=== PATIENT | female | born 1965 | race Caucasian/White ===

== ENCOUNTER 2017-08-20 03:20 | Inpatient (IN) | payer OTHER ==
[~2017-08-20] VITALS: Ht 142.2 cm; Wt 68.0 kg
[2017-08-20] MEDS ORDERED: ONDANSETRON HCL 4MG/2ML VIAL IV STA (04:51)
[2017-08-20] MEDS ORDERED: MECLIZINE 25MG TABLET PO ONE (05:00)
[2017-08-20 05:20] LABS: BASOPHILS % 0.7 % (0.0-2.0); EOSINOPHILS % 2.4 % (0.0-5.0); HEMATOCRIT. 44.3 % (36.0-48.0); LYMPHOCYTES % 17.2 % (20.0-50.0); MEAN CORPUSCULAR HEMOGLOBIN 29.9 pg (28.0-32.0); MEAN CORPUSCULAR VOLUME 88.1 fL (81.0-99.0); MEAN PLATELET VOLUME 9.2 fl (7.4-10.4); MONOCYTES % 4.4 % (2.0-8.0); NEUTROPHILS % 75.3 % (40.0-76.0); PLATELET 256 x1000/uL (130-400); RED BLOOD CELL COUNT 5.03 mill/uL (4.2-5.4); RED CELL DISTRIBUTION WIDTH 13.9 % (11.6-14.6)
[2017-08-20 05:26] LABS: CARBON DIOXIDE 24 mEq/L (21-32); CHLORIDE 105 mEq/L (98-107); TROPONIN I 0.12 ng/mL (0.00-0.04)
[2017-08-20] MEDS ORDERED: ASPIRIN 325MG TABLET PO ONE (06:45)
[2017-08-20 08:00] VITALS: BP 204/103
[2017-08-20 08:30] VITALS: BP 204/103
[2017-08-20] MEDS ORDERED: METF500T4 PO (08:32)
[2017-08-20] MEDS ORDERED: GLIP5TAB12 PO (08:32)
[2017-08-20] MEDS ORDERED: LOSA50TA20 PO (08:32)
[2017-08-20] MEDS ORDERED: METO-396 PO (08:32)
[2017-08-20] MEDS ORDERED: NA PHOS,M-B/NA PHOS,DI-BA ENEMA 118ML PR PRN (09:45)
[2017-08-20] MEDS ORDERED: ACETAMINOPHEN 325MG TABLET PO PRN (09:45)
[2017-08-20] MEDS ORDERED: IPRATROPIUM/ALBUTEROL 0.5-3(2.5)MG/3ML NEB INH PRN (09:45)
[2017-08-20] MEDS ORDERED: KETOROLAC 15MG/ML VIAL IV PRN (09:45)
[2017-08-20] MEDS ORDERED: DIPHENHYDRAMINE 50MG/ML VIAL IV PRN (09:45)
[2017-08-20] MEDS ORDERED: GUAIFENESIN 200MG/10ML SUGAR FREE UDC PO PRN (09:45)
[2017-08-20] MEDS ORDERED: ONDANSETRON HCL 4MG/2ML VIAL IV PRN (09:45)
[2017-08-20] MEDS ORDERED: MAGNESIUM/ALUMINUM HYDROXIDE/SIMETHICONE 30ML UDC PO PRN (09:45)
[2017-08-20] MEDS ORDERED: ZOLPIDEM TARTRATE 5MG TABLET PO PRN (09:45)
[2017-08-20] MEDS ORDERED: LORAZEPAM 0.5MG TABLET PO PRN (09:45)
[2017-08-20] MEDS ORDERED: NITROGLYCERIN 0.4MG TABLET SL SL PRN (09:45)
[2017-08-20] MEDS ORDERED: CLONIDINE 0.1MG TABLET PO PRN (09:45)
[2017-08-20] MEDS ORDERED: DOCUSATE SODIUM 100MG CAPSULE PO PRN (09:45)
[2017-08-20] MEDS: LISINOPRIL 20MG TABLET PO SCH ×2 (10:14→22:00)
[2017-08-20] MEDS: AMLODIPINE 10MG TABLET PO SCH (10:15)
[2017-08-20] MEDS: PANTOPRAZOLE SODIUM 40 MG/VIAL IV SCH (10:15)
[2017-08-20] MEDS: METOPROLOL TARTRATE 25MG TABLET PO SCH ×2 (10:15→21:59)
[2017-08-20] MEDS: ENOXAPARIN 40MG/0.4ML SYR SUBCUT SCH (11:19)
[2017-08-20] MEDS ORDERED: DEXTROSE 50% WATER 50ML SYRINGE IV PRN ×2 (11:45)
[2017-08-20 12:00] VITALS: BP 138/69
[2017-08-20] MEDS: BLOOD SUGAR DIAGNOSTIC STRIP TEST SCH ×3 (12:05→21:00)
[2017-08-20] MEDS: INSULIN LISPRO 100 UNITS/ML SUBCUT SCH ×3 (12:08→22:03)
[2017-08-20] MEDS: HYDRALAZINE HCL 50MG TABLET PO SCH ×2 (13:51→22:01)
[2017-08-20 16:00] VITALS: BP 139/81
[2017-08-20 16:25] LABS: CREATINE KINASE MB FRACTION 1.2 ng/mL (0.5-3.6); TROPONIN I 0.09 ng/mL (0.00-0.04)
[2017-08-20 20:00] VITALS: BP 126/69
[2017-08-20] MEDS ORDERED: ATORVASTATIN CALCIUM 20MG TABLET PO SCH (21:00)
[2017-08-20] MEDS: TRAMADOL 50MG TABLET PO PRN (22:02)
[2017-08-20 22:50] LABS: *AMPHETAMINES SCREEN URINE NEGATIVE (NEGATIVE); *BARBITURATES SCREEN URINE NEGATIVE (NEGATIVE); *BENZODIAZEPINES SCREEN URINE NEGATIVE (NEGATIVE); *COCAINE SCREEN URINE NEGATIVE (NEGATIVE); CANNABINOID URINE SCREEN NEGATIVE (NEGATIVE); METHADONE URINE SCREEN NEGATIVE (NEGATIVE); OPIATES URINE SCREEN NEGATIVE (NEGATIVE); PHENCYCLIDINE URINE SCREEN NEGATIVE (NEGATIVE)
[2017-08-20 23:34] LABS: CREATINE KINASE MB FRACTION 0.8 ng/mL (0.5-3.6); TROPONIN I 0.07 ng/mL (0.00-0.04)
[2017-08-21] VITALS: BP 131/70
[2017-08-21 04:00] VITALS: BP 131/77
[2017-08-21] MEDS: HYDRALAZINE HCL 50MG TABLET PO SCH ×2 (06:30→14:06)
[2017-08-21] MEDS: TRAMADOL 50MG TABLET PO PRN (06:31)
[2017-08-21] MEDS: BLOOD SUGAR DIAGNOSTIC STRIP TEST SCH ×2 (06:33→11:58)
[2017-08-21] MEDS: INSULIN LISPRO 100 UNITS/ML SUBCUT SCH ×2 (06:33→12:12)
[2017-08-21 08:00] VITALS: BP 148/76
[2017-08-21] MEDS: PANTOPRAZOLE SODIUM 40 MG/VIAL IV SCH (08:22)
[2017-08-21] MEDS: LISINOPRIL 20MG TABLET PO SCH (08:22)
[2017-08-21] MEDS: METOPROLOL TARTRATE 25MG TABLET PO SCH (08:22)
[2017-08-21] MEDS: ENOXAPARIN 40MG/0.4ML SYR SUBCUT SCH (08:23)
[2017-08-21] MEDS: AMLODIPINE 10MG TABLET PO SCH (08:23)
[2017-08-21] MEDS ORDERED: ASPIRIN 325MG EC TABLET PO SCH (09:00)
[2017-08-21 13:41] VITALS: BP 128/82
== END 2017-08-21 14:45 | disposition home or self-care (01) | DRG 305 ==
LOC: ER 03:20 → 5WST 05:39 → ENRESERV 07:40
PROVIDERS: ADMIT Internal Medicine; ATTEND Internal Medicine
DX: I10 Essential (primary) hypertension (principal); E11.65 Type 2 diabetes mellitus with hyperglycemia; E66.9 Obesity, unspecified; E78.00 Pure hypercholesterolemia, unspecified; F17.210 Nicotine dependence, cigarettes, uncomplicated; Z79.82 Long term (current) use of aspirin; Z71.3 Dietary counseling and surveillance; Z68.33 Body mass index [BMI] 33.0-33.9, adult
CPT/HCPCS: 36415; 70450; 70551; 71045; 80053; 80061; 80305; 82550; 82553; 82962; 83036; 84484; 85025; 93005; 93306; 93970; 96374; 99291; C9113; J1650; J1815; J2405; J8597

== ENCOUNTER 2018-08-10 12:35 | Inpatient (IN) | payer OTHER ==
[~2018-08-10] VITALS: Ht 139.7 cm; Wt 69.4 kg
[~2018-08-10 12:35] MED LIST: GLIP5TAB12 PO; METF-414 PO; METO-396 PO
[2018-08-10] MEDS ORDERED: ONDANSETRON HCL 4MG/2ML INJ IV STA (13:37)
[2018-08-10] MEDS ORDERED: MORPHINE SULFATE 4 MG/ML CPJ (NOT FOR IM USE) IV STA (13:37)
[2018-08-10] MEDS ORDERED: KETOROLAC 30MG/ML VIAL IV STA (13:37)
[2018-08-10] MEDS ORDERED: LABETALOL HCL 20MG/4ML CARPUJECT IV ONE (13:45)
[2018-08-10] MEDS ORDERED: METHOCARBAMOL 750MG TABLET PO SCH (14:00)
[2018-08-10 14:36] LABS: BASOPHILS % 0.6 % (0.0-2.0); EOSINOPHILS % 2.7 % (0.0-5.0); LYMPHOCYTES % 25.5 % (20.0-50.0); MEAN CORPUSCULAR HEMOGLOBIN 29.8 pg (28.0-32.0); MEAN CORPUSCULAR VOLUME 87.5 fL (81.0-99.0); MEAN PLATELET VOLUME 9.4 fl (7.4-10.4); MONOCYTES % 4.9 % (2.0-8.0); NEUTROPHILS % 66.3 % (40.0-76.0); PLATELET 292 x1000/uL (130-400); RED BLOOD CELL COUNT 5.38 mill/uL (4.2-5.4)
[2018-08-10 14:43] LABS: CHLORIDE 103 mEq/L (98-107)
[2018-08-10] MEDS ORDERED: DEXTROSE 50% WATER 50ML SYRINGE IV PRN ×2 (19:15)
[2018-08-10] MEDS ORDERED: MAGNESIUM/ALUMINUM HYDROXIDE/SIMETHICONE 30ML UDC PO PRN (19:15)
[2018-08-10] MEDS ORDERED: CLONIDINE 0.1MG TABLET PO PRN (19:15)
[2018-08-10] MEDS ORDERED: IPRATROPIUM/ALBUTEROL 0.5-3(2.5)MG/3ML NEB INH PRN (19:15)
[2018-08-10] MEDS ORDERED: DOCUSATE SODIUM 100MG CAPSULE PO PRN (19:15)
[2018-08-10] MEDS ORDERED: CARVEDILOL 3.125 MG TABLET PO NR (20:45)
[2018-08-10 22:30] VITALS: BP 192/91
[2018-08-10 22:54] VITALS: BP 192/91
[2018-08-10] MEDS: CARVEDILOL 3.125 MG TABLET PO SCH (23:05)
[2018-08-11] VITALS (7 sets, daily range): BP systolic 112–175; BP diastolic 54–103
[2018-08-11] MEDS: ACETAMINOPHEN 325MG TABLET PO PRN ×2 (00:44→12:27)
[2018-08-11] MEDS: BLOOD SUGAR DIAGNOSTIC STRIP TEST SCH ×4 (05:46→20:59)
[2018-08-11] MEDS: INSULIN LISPRO 100 UNITS/ML SUBCUT SCH ×4 (06:06→21:00)
[2018-08-11 06:56] LABS: BASOPHILS % 0.5 % (0.0-2.0); EOSINOPHILS % 3.7 % (0.0-5.0); HEMATOCRIT. 43.6 % (36.0-48.0); HEMOGLOBIN. 14.4 g/dL (12.0-16.0); LYMPHOCYTES % 22.3 % (20.0-50.0); MEAN CORPUSCULAR HEMOGLOBIN 29.5 pg (28.0-32.0); MEAN CORPUSCULAR VOLUME 89.6 fL (81.0-99.0); MEAN PLATELET VOLUME 9.2 fl (7.4-10.4); MONOCYTES % 5.7 % (2.0-8.0); NEUTROPHILS % 67.8 % (40.0-76.0); PLATELET 248 x1000/uL (130-400); RED BLOOD CELL COUNT 4.87 mill/uL (4.2-5.4); RED CELL DISTRIBUTION WIDTH 14.1 % (11.6-14.6)
[2018-08-11 07:09] LABS: CHLORIDE 104 mEq/L (98-107)
[2018-08-11 07:24] LABS: PHOSPHORUS 4.2 mg/dL (2.5-4.9)
[2018-08-11] MEDS: CARVEDILOL 3.125 MG TABLET PO SCH (09:37)
[2018-08-11] MEDS: GLIPIZIDE 5MG TABLET PO SCH (13:17)
[2018-08-11] MEDS ORDERED: REGADENOSON 0.4 MG/5 ML IV ONE (13:30)
[2018-08-11] MEDS: NIFEDIPINE XL 60MG TAB PO SCH ×2 (15:35→20:59)
[2018-08-11] MEDS: LOSARTAN POTASSIUM 100 MG TABLET PO SCH (15:35)
[2018-08-11] MEDS: CLONIDINE 0.1MG TABLET PO SCH ×2 (16:04→22:21)
[2018-08-11] MEDS: METFORMIN HCL 500MG TABLET PO SCH (18:13)
[2018-08-11] MEDS: METOPROLOL TARTRATE 25MG TABLET PO SCH (20:59)
[2018-08-12 04:00] VITALS: BP 111/60
[2018-08-12] MEDS: CLONIDINE 0.1MG TABLET PO SCH ×2 (06:00→15:59)
[2018-08-12] MEDS: METFORMIN HCL 500MG TABLET PO SCH (06:18)
[2018-08-12] MEDS: BLOOD SUGAR DIAGNOSTIC STRIP TEST SCH ×2 (06:21→11:50)
[2018-08-12] MEDS: INSULIN LISPRO 100 UNITS/ML SUBCUT SCH ×2 (06:21→12:49)
[2018-08-12 06:51] LABS: CHLORIDE 104 mEq/L (98-107)
[2018-08-12 06:53] LABS: BASOPHILS % 0.5 % (0.0-2.0); EOSINOPHILS % 3.2 % (0.0-5.0); HEMATOCRIT. 45.1 % (36.0-48.0); LYMPHOCYTES % 21.4 % (20.0-50.0); MEAN CORPUSCULAR HEMOGLOBIN 29.6 pg (28.0-32.0); MEAN CORPUSCULAR VOLUME 88.8 fL (81.0-99.0); MEAN PLATELET VOLUME 9.2 fl (7.4-10.4); MONOCYTES % 6.5 % (2.0-8.0); NEUTROPHILS % 68.4 % (40.0-76.0); PLATELET 248 x1000/uL (130-400); RED BLOOD CELL COUNT 5.08 mill/uL (4.2-5.4); RED CELL DISTRIBUTION WIDTH 13.8 % (11.6-14.6)
[2018-08-12 08:00] VITALS: BP 114/65
[2018-08-12] MEDS ORDERED: REGADENOSON 0.4 MG/5 ML IV ONE (09:03)
[2018-08-12] MEDS: LOSARTAN POTASSIUM 100 MG TABLET PO SCH (10:34)
[2018-08-12] MEDS: NIFEDIPINE XL 60MG TAB PO SCH (10:34)
[2018-08-12] MEDS: GLIPIZIDE 5MG TABLET PO SCH (10:34)
[2018-08-12] MEDS: METOPROLOL TARTRATE 25MG TABLET PO SCH (10:34)
[2018-08-12 12:00] VITALS: BP 120/70
[2018-08-12 16:00] VITALS: BP 124/73
[2018-08-12 16:03] VITALS: BP 124/73
[2018-08-12 17:12] LABS: *BARBITURATES SCREEN URINE NEGATIVE (NEGATIVE); *BENZODIAZEPINES SCREEN URINE NEGATIVE (NEGATIVE); *COCAINE SCREEN URINE NEGATIVE (NEGATIVE)
[2018-08-12 17:13] LABS: *AMPHETAMINES SCREEN URINE NEGATIVE (NEGATIVE); CANNABINOID URINE SCREEN NEGATIVE (NEGATIVE); METHADONE URINE SCREEN NEGATIVE (NEGATIVE); OPIATES URINE SCREEN NEGATIVE (NEGATIVE); PHENCYCLIDINE URINE SCREEN NEGATIVE (NEGATIVE)
== END 2018-08-12 16:45 | disposition home or self-care (01) | DRG 305 ==
LOC: ER 12:49 → 5WST 17:11 → ENRESERV 20:51
PROVIDERS: ADMIT Family Medicine Adult Medicine; ATTEND Family Medicine Adult Medicine
DX: I16.0 Hypertensive urgency (principal); E11.65 Type 2 diabetes mellitus with hyperglycemia; M54.40 Lumbago with sciatica, unspecified side; E78.00 Pure hypercholesterolemia, unspecified; G89.29 Other chronic pain; I10 Essential (primary) hypertension; F17.210 Nicotine dependence, cigarettes, uncomplicated; I35.1 Nonrheumatic aortic (valve) insufficiency; Z91.14 Patient's other noncompliance with medication regimen; Z90.49 Acquired absence of other specified parts of digestive tract; Z82.49 Family history of ischemic heart disease and other diseases of the circulatory system
CPT/HCPCS: 36415; 71045; 78452; 80048; 80305; 82962; 83036; 83735; 84100; 84484; 93005; 93017; 93306; 94640; 96374; 96375; 99285; A9500; J1815; J1885; J2270; J2405; J2785; J3490